=== PATIENT | female | born 1995 | race Caucasian/White ===

== ENCOUNTER → 2017-03-15 | Outpatient (CLI) | payer BC ==
--- NOTE | 2017-03-20 08:05 | EEG PRO FEE REPORT ---
EEG INTERPRETATION PATIENT NAME: DAY NEVRAEZ ROOM#: ORDER#: [id number] DATE OF STUDY: 03/15/2017 : 1995 REFERRING MD: GERMÁN BLOUNT M.D. DIAGNOSIS: Epilepsy REPORT The background activity consists of 8-9 Hz alpha. No clear focal slowing, amplitude asymmetry, or epileptiform discharges are identified. No video correlation or abnormalities are seen. IMPRESSION Normal EEG INTERPRETING PHYSICIAN: NADEGE REED M.D. /: MTEFYUNIER TT: [id number] ID: [id number] /: [id number] TD: [id number] JOB: [id number] cc:Trace HACKETT M.D. >
== END ==
LOC: NEURO 12:46
PROVIDERS: ATTEND Pediatrics
DX: G40.909 Epilepsy, unspecified, not intractable, without status epilepticus (principal)
CPT/HCPCS: 95819

== ENCOUNTER → 2019-10-21 | Outpatient (CLI) | payer BC ==
--- NOTE | 2019-10-21 14:55 | NEURO WORKBENCH EEG REPORT ---
EEG Report Patient: Ajay Arana ID: [id number] Referring Doctor: Fer Ricks Date: 10/21/2019 Reason for study: Evaluate Epileptiform activity Medications: Zyrtec, Albuterol, Flonase, Prilosec History: This is a 23 year old female with a history of asthma and seizures (last seizure reported in February 2013). There were two prior EEGs reported as normal in 2015 and 2018. This EEG was requested for evaluation of epileptiform activity. EEG Interpretation: This EEG was recorded during wakefulness and stage I sleep. The awake EEG is characterized by a well organized background with a well developed and reactive posterior dominant rhythm (PDR) of approximately 10 Hz. The remainder of the background consisted of low amplitude alpha activity and frontally predominant beta activity. The EEG is symmetric in amplitudes and frequencies. Photic stimulation resulted in photic driving, and there was no epileptiform activity elicited with photic stimulation. Stage I sleep was achieved and characterized by slow rolling eye movements, slowing of the background rhythm with fragmentary theta activity, and Positive Occipital Sharp Transients (POSTs). Stage II sleep was not achieved. There were no epileptiform abnormalities (no sharp waves and no spikes). There were no seizures. The EKG showed a regular rhythm with typically 60-70 beats per minute. EEG Impression: This EEG is within normal limits for age. There was no epileptiform activity or seizures. A single normal routine EEG does not rule out the possibility of epilepsy. If there is high clinical suspicion for epilepsy, then additional EEG evaluation should be considered with a sleep-deprived EEG or more prolonged EEG monitoring. INTERPRETING NEUROLOGIST: Lee Tyson MD Board certified by the [employer] [employer] in Neurology, Clinical Neurophysiology, and Sleep Medicine [facility]
== END ==
LOC: NEURO 07:58
PROVIDERS: ATTEND Pediatrics
DX: G40.909 Epilepsy, unspecified, not intractable, without status epilepticus (principal)
CPT/HCPCS: 95819

== ENCOUNTER → 2020-02-27 | Outpatient (CLI) | payer BC ==
[~2020-02-27] MED LIST: COVID-19 VACCINE (PFIZER)/PF 30 MCG/0.3 ML VIAL IM ONE; EPINEPHRINE INJ/PF 1 MG/1 ML AMPULE IM PRN
== END ==
LOC: EMPHEALTH 09:08
PROVIDERS: ATTEND Internal Medicine
DX: Z23 Encounter for immunization (principal)
CPT/HCPCS: 91300